=== PATIENT | male | born 1960 | race Caucasian/White ===

== ENCOUNTER 2017-01-21 20:53 | Emergency (ER) | payer OTHER, MEDICARE ==
[~2017-01-21 20:53] MED LIST: ACETAMINOPHEN500 M4 PO; ATENOLOL; BACLOFEN PO; BACLOFEN10 M1 PO; BACLOFEN20 M1 PO; CLARITIN10 M8 PO; GABAPENTIN300 M1 PO; HYDROCODON-ACE1 EA17 PO; IBUPROFEN200 M3 PO; MELOXICAM15 M1 PO; MOBIC7.5 M2 PO; NAPROSYN500 M1 PO; NORCO 10-325 T1 EACH PO; NORCO 5-325 TA1 EACH PO; PROTONIX40 M2 PO; SIMVASTATIN20 M1 PO; STOOL SOFTENER250 M2 PO
[2017-01-21] MEDS ORDERED: LYRICA50 MG/CAP PO (21:59)
[2017-01-21] MEDS ORDERED: CYMBALTA20 M1 PO (22:00)
== END 2017-01-21 22:26 ==
LOC: EDMED 20:53
DX: S60.511A Abrasion of right hand, initial encounter (principal); M25.511 Pain in right shoulder; Z23 Encounter for immunization; Y04.0XXA Assault by unarmed brawl or fight, initial encounter